=== PATIENT | female | born 1955 | race Caucasian/White ===

== ENCOUNTER → 2016-06-05 | Outpatient (CLI) | payer OTHER ==
[~2016-06-05] VITALS: Ht 177.8 cm; Wt 102.1 kg
[~2016-06-05] MED LIST: BACL10TA2 PO; CLAR10CA3 PO; LIDOCAINE 2% INJ 100 MG/5 ML SYRINGE As Ordered ONE; NEXI40CA PO; NS 1,000 ML IV SCH; OXYB5TA PO; PROPOFOL 200 MG/20 ML VIAL As Ordered ONE; TYLE325T5 PO
--- NOTE | 2016-06-05 08:58 | ROOR ---
Patient Name: Meg Rosario Procedure Date: 06/05/2016 8:36 AM Date of : 1955 Age: 61 Room: [facility] Gender: Female Note Status: Finalized Procedure: Colonoscopy to Cecum Indications: Colon cancer screening in patient at increased risk: Colorectal cancer in mother, Colon cancer screening in patient at increased risk: Colorectal cancer in father Providers: Lauro Tabares MD Referring MD: CHILANGO KEE MD Requesting Provider: Medicines: Monitored Anesthesia Care Complications: No immediate complications. Procedure: Pre-Anesthesia Assessment: - The heart rate, respiratory rate, oxygen saturations, blood pressure, adequacy of pulmonary ventilation, and response to care were monitored throughout the procedure. The Colonoscope was introduced through the anus and advanced to the cecum, identified by appendiceal orifice and ileocecal valve. The colonoscopy was performed without difficulty. The patient tolerated the procedure well. The quality of the bowel preparation was excellent. Findings: The perianal and digital rectal examinations were normal. Non-bleeding internal hemorrhoids were found during retroflexion. The hemorrhoids were small and Grade I (internal hemorrhoids that do not prolapse). Scattered small-mouthed diverticula were found in the recto-sigmoid colon, sigmoid colon and descending colon. The exam was otherwise without abnormality on direct and retroflexion views. Impression: - Non-bleeding internal hemorrhoids. - Diverticulosis in the recto-sigmoid colon, in the sigmoid colon and in the descending colon. - The examination was otherwise normal on direct and retroflexion views. - No specimens collected. - The exam was otherwise normal to the cecum. Recommendation: - Patient has a contact number available for emergencies. The signs and symptoms of potential delayed complications were discussed with the patient. Return to normal activities tomorrow. Written discharge instructions were provided to the patient. - High fiber diet. - Discharge patient to home. - Continue present medications. - Await pathology results. - Telephone GI clinic for pathology results in 1 week. - Repeat colonoscopy in 5 years for screening purposes. - Return to referring physician. - The findings and recommendations were discussed with the patient's family. Lauro Tabares MD Lauro Tabares MD 06/05/2016 8:58:03 AM This report has been signed electronically. Number of Addenda: 0 Note Initiated On: 06/05/2016 8:36 AM Estimated Blood Loss: Estimated blood loss: none.
[2016-06-05 09:12] VITALS: BP 157/69
== END ==
LOC: M OPP 07:37
PROVIDERS: ATTEND Internal Medicine Gastroenterology
DX: Z12.11 Encounter for screening for malignant neoplasm of colon (principal); Z86.010 Personal history of colon polyps; Z80.0 Family history of malignant neoplasm of digestive organs; K64.0 First degree hemorrhoids; K57.30 Diverticulosis of large intestine without perforation or abscess without bleeding; K92.1 Melena; Z87.891 Personal history of nicotine dependence; Z79.899 Other long term (current) drug therapy; Z88.1 Allergy status to other antibiotic agents

== ENCOUNTER → 2018-08-03 | Outpatient (CLI) | payer MEDICARE, OTHER ==
[~2018-08-03] MED LIST changes: -LIDOCAINE 2% INJ 100 MG/5 ML SYRINGE As Ordered ONE; -NS 1,000 ML IV SCH; -OXYB5TA PO; +OXYB5TAB10 PO; -PROPOFOL 200 MG/20 ML VIAL As Ordered ONE
--- NOTE | 2018-08-03 14:02 | REP ---
Lumbar spine six views: Comparison is the abdomen and pelvis CT dated 09/07/2013. There is mild lumbar scoliosis convex left. 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 There is grade 1 compression deformity of the L2 superior endplate as an interval change. The remainder of the vertebral body heights are normal. There is degenerative disc disease at L 5/6 and L6 /S1. There is facet osteoarthritis throughout the lumbar spine.. The pedicles are unremarkable. Sacroiliac articulations are unremarkable. There is diffuse demineralization. Impression: Grade 1 compression deformity of the L2 vertebral body. Degenerative disc disease as described. Facet osteoarthritis. 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 Electronically Signed by Duy Najera MD 08/03/2018 01:53 P
== END ==
LOC: M LRY 13:03
PROVIDERS: ATTEND Nurse Practitioner Family
DX: M51.36 Other intervertebral disc degeneration, lumbar region (principal); M51.37 Other intervertebral disc degeneration, lumbosacral region; M43.06 Spondylolysis, lumbar region; S39.92XA Unspecified injury of lower back, initial encounter; W19.XXXA Unspecified fall, initial encounter; Y92.9 Unspecified place or not applicable
CPT/HCPCS: 72110; G0463

== ENCOUNTER → 2019-08-16 | Outpatient (CLI) | payer MEDICARE, OTHER ==
--- NOTE | 2019-08-16 13:41 | REP ---
RIGHT WRIST FIVE VIEWS: Five views right wrist performed. No fracture is seen. There is significant widening of the scapholunate interval compatible with scapholunate ligament tear. There is decreased space between the distal end of the radius and capitate. There is significant narrowing at the radiocarpal joint with subchondral sclerosis, specifically, there is severe narrowing at the articulation between the distal radius and scaphoid, and distal radius and lunate. There appears to be an old ulnar styloid fracture. There may be an old radial styloid avulsion fracture. IMPRESSION: No evidence of acute fracture. Widened scaphoid lunate interval compatible with scapholunate ligament tear. Electronically Signed by Duy Amaro MD 08/16/2019 04:21 P
== END ==
LOC: M LRY 12:13
PROVIDERS: ATTEND Nurse Practitioner Family
DX: M19.031 Primary osteoarthritis, right wrist (principal); S69.91XA Unspecified injury of right wrist, hand and finger(s), initial encounter; W19.XXXA Unspecified fall, initial encounter; Y92.009 Unspecified place in unspecified non-institutional (private) residence as the place of occurrence of the external cause
CPT/HCPCS: 73110; G0463

== ENCOUNTER → 2019-10-26 | Outpatient (REF) | payer MEDICARE, OTHER | LOC: M LAB REF 12:54 | PROVIDERS: ATTEND Radiology Diagnostic Radiology | DX: N64.89 Other specified disorders of breast (principal) ==

== ENCOUNTER → 2021-01-03 | Outpatient (CLI) | payer MEDICARE, OTHER ==
--- NOTE | 2021-01-03 15:09 | REPMRS ---
Patient History The patient states she has not had a clinical breast exam in over a year. Family history of breast cancer at age 63 in sister, colorectal cancer at age 50 or over in father, colorectal cancer at age 50 or over in mother, prostate cancer at age 52 in brother, colorectal cancer at age 50 or over in paternal aunt, colorectal cancer at age 50 or over in paternal aunt, colorectal cancer at age 50 or over in paternal grandmother, colorectal cancer at age 50 or over in paternal grandfather, colorectal cancer at age 50 or over in maternal uncle, colorectal cancer at age 50 or over in maternal uncle. Benign stereotactic core biopsy of the left breast, October 26, 2019. Benign stereotactic core biopsy of the right breast, April 10, 2010. Benign stereotactic core biopsy of the left breast, December 21, 2005. Patient states no breast complaints today. Patient has signed MRS History Sheet. Digital Woman Screen Mammo: January 03, 2021 - Exam #: [id number] Bilateral CC and MLO view(s) were taken. Technologist: Adeola Martin, Technologist Prior study comparison: October 12, 2019, left breast digital mammo diagnostic unilateral, performed at [facility] [facility]. October 03, 2019, bilateral digital mammo screening bilat, performed at [facility]. FINDINGS: There are scattered fibroglandular densities. Screening. Digital screening (2D) mammography was performed bilaterally in the CC and MLO projections. Additionally, breast tomosynthesis (3D mammography) was performed bilaterally in the CC and MLO projections. Todays exam was compared to the prior exam/exams. By history, the patient has no complaints of a palpable breast abnormality or other significant breast complaints. The breasts are unchanged in size and shape. There are no senthil-soft tissue densities or spiculated masses.There is stable post-procedural internal architectural distortion. There is no new internal architectural distortion.Once again, stable benign appearing calcifications are seen. There are no suspicious senthil-calcific clusters. Skin thickening or nipple retraction is not present. IMPRESSION: BI-RADS Category 2- Benign Findings. There is no evidence of malignant alteration of the breasts. Followup examination recommended in one year. The Volpara volumetric breast density category is B, there are scattered areas of fibroglandular densities. This mammogram was read with the assistance of ViViFi,an FDA approved computer aided detection system for mammography. The lifetime Tyrer-Cuzick score is 9.4 % Negative x-ray reports should not delay surgical consultation if a dominant or clinically suspicious mass is present. Not all breast cancers can be identified by mammography. Therefore, we recommend that you continue to perform regular breast self-examination and physical examination and then promptly contact your physician of any concerns or changes. Adenosis and dense breasts may obscure an underlying neoplasm. Assessment: BI-RADS/ACR category 2 mammogram. Benign Findings. Recommendation Routine screening mammogram of both breasts in 1 year. Electronically Signed By: Haseeb Obrien DO 01/03/21 [id number]
== END ==
LOC: M WHC 13:51
PROVIDERS: ATTEND Nurse Practitioner Family
DX: Z12.31 Encounter for screening mammogram for malignant neoplasm of breast (principal)

== ENCOUNTER → 2021-04-17 | Outpatient (CLI) | payer MEDICARE, OTHER | LOC: M RAD 09:56 | PROVIDERS: ATTEND Nurse Practitioner Family | DX: R22.43 Localized swelling, mass and lump, lower limb, bilateral (principal); I73.9 Peripheral vascular disease, unspecified ==

== ENCOUNTER → 2021-10-08 | Outpatient (CLI) | payer MEDICARE, OTHER ==
[~2021-10-08] MED LIST changes: +ACET32TAB PO; +BACL1TAB8 PO; +CALC500T38 PO; +CALC600T86 PO; +CIDA500T2 PO; +EZET10TA21 PO; +FLON1SPR; +FURO20TA2 PO; +OLOP5DRO16; +OMEP10CASR PO; +VESI10TA2 PO; +VITMTA PO
== END ==
LOC: M LABSMTC 09:20
PROVIDERS: ATTEND Anesthesiology
DX: Z01.818 Encounter for other preprocedural examination (principal); Z11.52 Encounter for screening for COVID-19

== ENCOUNTER 2021-10-13 09:05 | Day surgery (SDC) | payer MEDICARE, OTHER ==
[~2021-10-13] VITALS: Ht 177.8 cm; Wt 108.3 kg
[~2021-10-13 09:05] MED LIST changes: +NS 1,000 ML IV ONE
[2021-10-13] MEDS ORDERED: LIDOCAINE 2% 100MG/5ML SDV (FOR ANES.) As Ordered ONE (10:18)
[2021-10-13] MEDS ORDERED: propofoL 200 MG/20 ML VIAL As Ordered ONE (10:18)
[2021-10-13 11:14] VITALS: BP 167/71
== END 2021-10-13 11:13 | disposition home or self-care (01) ==
LOC: M OPP 09:05
PROVIDERS: ATTEND Internal Medicine Gastroenterology
DX: Z12.11 Encounter for screening for malignant neoplasm of colon (principal); Z80.0 Family history of malignant neoplasm of digestive organs; K57.30 Diverticulosis of large intestine without perforation or abscess without bleeding; K64.0 First degree hemorrhoids; Z79.1 Long term (current) use of non-steroidal anti-inflammatories (NSAID); Z79.51 Long term (current) use of inhaled steroids; Z79.899 Other long term (current) drug therapy; Z88.0 Allergy status to penicillin

== ENCOUNTER → 2022-01-05 | Outpatient (CLI) | payer MEDICARE, OTHER ==
[~2022-01-05] MED LIST changes: -NS 1,000 ML IV ONE
== END ==
LOC: M WHC 09:49
PROVIDERS: ATTEND Nurse Practitioner Family
DX: Z12.31 Encounter for screening mammogram for malignant neoplasm of breast (principal)

== ENCOUNTER → 2023-01-06 | Outpatient (CLI) | payer MEDICARE, OTHER ==
[~2023-01-06] MED LIST changes: -OLOP5DRO16; +OLOP5DRO17
== END ==
LOC: M WHC 08:57
PROVIDERS: ATTEND Nurse Practitioner Family
DX: Z12.31 Encounter for screening mammogram for malignant neoplasm of breast (principal)

== ENCOUNTER → 2024-01-31 | Outpatient (CLI) | payer MEDICARE, OTHER ==
[~2024-01-31] MED LIST changes: -OXYB5TAB10 PO; +OXYB5TAB14 PO
== END ==
LOC: M WHC 09:51
PROVIDERS: ATTEND Nurse Practitioner Family
DX: Z12.31 Encounter for screening mammogram for malignant neoplasm of breast (principal)

== ENCOUNTER → 2025-01-31 | Outpatient (CLI) | payer OTHER ==
[~2025-01-31] MED LIST changes: -EZET10TA21 PO; +EZET10TA57 PO
== END ==
LOC: M WHC 10:56
PROVIDERS: ATTEND Nurse Practitioner Family
DX: Z12.31 Encounter for screening mammogram for malignant neoplasm of breast (principal); E78.2 Mixed hyperlipidemia; G11.4 Hereditary spastic paraplegia; R32 Unspecified urinary incontinence; I73.9 Peripheral vascular disease, unspecified; R92.313 Mammographic fatty tissue density, bilateral breasts